=== PATIENT | female | born 1970 | race Two or more races ===

== ENCOUNTER 2020-09-08 18:00 | Outpatient (CLI) | payer MEDICAID | END 2020-09-08 18:01 | disposition critical access hospital (66) | LOC: EMS 18:00 | DX: R11.2 Nausea with vomiting, unspecified (principal); R19.7 Diarrhea, unspecified | CPT/HCPCS: A0425; A0427 ==

== ENCOUNTER 2020-09-08 18:26 | Emergency (ER) | payer MEDICAID ==
[2020-09-08] MEDS ORDERED: SODIUM CHLORIDE 0.9% 1,000 ML IV STA ×3 (18:35→23:08)
[2020-09-08] MEDS ORDERED: ONDANSETRON 4 MG/2 ML VIAL IVP STA ×2 (18:35→19:41)
--- OUTSIDE RECORDS SUMMARY | 2020-09-08 18:49 | EXTERNAL MEDICAL SUMMARY RPT | Continuity of Care Document ---
:1970 Demographics Phone Unavailable Preferred Language Korean Marital Status Unknown Pentecostalism Affiliation Unknown Race Unknown Ethnic Group Unknown Author Organization [facility] Address [address] [id number] Phone Care Team Providers Name Role Phone Horras Unavailable Unavailable Horras Unavailable Unavailable Austin Unavailable Unavailable Austin Unavailable Unavailable Medications date description facility 20200831 testosterone cypionate 200 MG/ML Inject able Solution [facility] Problems date description facility 20200826 Endocrine disorder, unspecified [facility] 20200826 Encounter for screening for malignant n eoplasm of [facility] prostate 20200826 Low back pain [facility] [id number] Impingement syndrome of left shoulder [facility] Procedures date description facility [id number] [facility] 20200827 [facility] 20200826 [facility] 20200826 [facility] Vital Signs date measurement value source 20200826 weight_standard 237.99 lb 20200826 weight_metric 107.95 kg 20200826 temperature_standard 98.2 F 20200826 temperature_metric 36.78 C 20200826 respiration_rate 18 /min 20200826 height_standard 62 in 20200826 height_metric 157.48 cm 20200826 heart_rate 74 /min 20200826 BP_systolic 199 mm[Hg] 20200826 BP_diastolic 88 mm[Hg] 20200826 BMI 43.5 kg/m2 20200827 weight_standard 91.68 lb 20200827 weight_metric 41.59 kg 20200827 height_standard 72 in 20200827 height_metric 182.88 cm 20200827 BP_systolic 128 mm[Hg] 20200827 BP_diastolic 66 mm[Hg] 20200827 BMI 27.3 kg/m2 20200907 weight_standard 92.08 lb 20200907 weight_metric 41.77 kg 20200907 temperature_standard 99.2 F 20200907 temperature_metric 37.33 C 20200907 respiration_rate 16 /min 20200907 height_standard 72 in [id number] height_metric 182.88 cm 20200907 heart_rate 70 /min 20200907 BP_systolic 128 mm[Hg] 20200907 BP_diastolic 64 mm[Hg] 20200907 BMI 27.5 kg/m2
[2020-09-08] MEDS ORDERED: HYDROmorphone 1 MG/ML CARPUJECT IVP STA (18:51)
[2020-09-08 18:53] LABS: BASOPHILS % (AUTO) 0.3 %; EOSINOPHILS % (AUTO) 0.1 %; HCT - HEMATOCRIT 41.3 % (37.0-47.0); HGB - HEMOGLOBIN 14.2 g/dL (12.0-16.0); LYMPHOCYTES # (AUTO) 1.6 10^3/uL (1.5-3.5); LYMPHOCYTES % (AUTO) 14.9 %; MEAN CORPUSCULAR HEMOGLOBIN 32.3 pg (27.0-31.0); MEAN CORPUSCULAR HGB CONC 34.4 g/dL (32.0-36.0); MEAN CORPUSCULAR VOLUME 94.1 fL (81.0-99.0); MEAN PLATELET VOLUME 11.1 fL (7.9-10.8); MONOCYTES # (AUTO) 0.3 10^3/uL (0.0-1.0); MONOCYTES % (AUTO) 2.4 %; NEUTROPHILS # (AUTO) 8.7 10^3/uL (1.5-6.6); NEUTROPHILS % (AUTO) 81.9 %; PLT - PLATELET COUNT 226 10^3/uL (130-450); RED BLOOD COUNT 4.39 10^6/uL (4.20-5.40); RED CELL DISTRIBUTION WIDTH 11.9 % (12.0-15.0); WHITE BLOOD COUNT 10.6 x10^3/uL (4.8-10.8)
--- NOTE | 2020-09-08 18:55 | ED Physician Documentation ---
History of Present Illness - Stated complaint Stated Complaint: N/V/D - Chief complaint Chief Complaint: Abd Pain - Additonal information Additional information: 50-year-old female presents the emergency department for evaluation of 3 days of uncontrolled nausea and vomiting as well as generalized abdominal pain and fevers. She denies any recent illness or sick contacts but did receive the COVID-19 vaccination on the seventh of this month which she is concerned may be contributing to her symptoms. She is a diabetic typically has blood sugars in the 180s to the 240s at home. She is on insulin 70/30 twice daily. She takes 50 units each time. Also on metformin lisinopril, gabapentin and a statin for high cholesterol. Patient is primarily Croatian-speaking but using a video conference interpreter she also reports that she feels very dizzy especially when turning her head. The dizziness last 10-15 seconds before going away but it causes her intense nausea. Denies tinnitus, headache. No hx of similar Much of the history and exam was completed with educational sign language interpreter #[id number] which was otherwise difficult to obtain Review of Systems Constitutional: reports: Fever Eyes: reports: Reviewed and negative Ears: reports: Reviewed and negative Nose: reports: Reviewed and negative Throat: reports: Reviewed and negative Cardiac: denies: Chest pain / pressure, Palpitations, Pedal edema, Calf pain Respiratory: denies: Dyspnea, Cough GI: reports: Abdominal Pain, Nausea, Vomiting, Diarrhea. denies: Constipation, Bloody / black stool : denies: Dysuria, Frequency, Hesitancy Skin: denies: Rash, Lesions Musculoskeletal: reports: Reviewed and negative PD PAST MEDICAL HISTORY - Past Medical History Cardiovascular: Hypertension, High cholesterol Endocrine/Autoimmune: Type 2 diabetes Psych: Depression - Past Surgical History Past Surgical History: Yes Ortho: Other /PROTOTYPER: section, Other - Present Medications Home Medications: Ambulatory Orders Medication Instructions Recorded Confirmed Cyclobenzaprine [Flexeril] 10 mg PO TID PRN #20 tablet 03/26/15 Hydrocodone/Acetaminophen 1 - 2 each PO Q6H PRN #14 tablet 03/26/15 [Hydrocodon-Acetaminophen 5-325] Insulin Aspart (Vial) [NovoLOG 30 unit SQ BID 03/26/15 03/26/15 (VIAL FOR ED USE)] Lisinopril 20 mg PO DAILY 03/26/15 03/26/15 Lovastatin 40 mg PO DAILY 03/26/15 03/26/15 Naproxen [Naprosyn] 500 mg PO DAILY 03/26/15 03/26/15 metFORMIN [Glucophage] 850 mg PO TID 03/26/15 03/26/15 Meclizine [Antivert] 25 mg PO Q6H PRN #30 tablet 09/08/20 Ondansetron Odt [Zofran] 4 mg TL Q6H PRN #30 tablet 09/08/20 - Allergies Allergies/Adverse Reactions: Allergies Allergy/AdvReac Type Severity Reaction Status Date / Time Penicillins Allergy Rash Verified 03/26/15 07:35 - Social History Does the pt smoke?: Yes Smoking Status: Current every day smoker Does the pt drink ETOH?: No Does the pt have substance abuse?: No - Immunizations Immunizations are current?: Yes PD ED PE EXPANDED - General General: Alert - Cardiac Cardiac: Regular Rate, Radial strong equal, Pedal strong equal, Cap refill < 2 sec - Respiratory Respiratory: Clear to ausultation judith. No: Distress, Labored - Abdomen Abdomen: Normal Bowel sounds, Tender to palpation, Generalized/diffuse. No: Rebound (Diffuse abdominal tenderness without guarding or rebound.), Guarding - Back Back: Normal exam - Extremities Extremities: Normal. No: Deformity, Tenderness - Neuro Neuro: Alert and Oriented X 3, CNII-XII intact, Normal speech, Other (dizzineness reproduced with turning the head bilaterally, but most significant on the left). No: Nystagmus - GCS Eye Opening: Spontaneous Motor: Obeys Commands Verbal: Oriented Total: 15 Results - Vitals Vitals: Vital Signs - 24 hr 09/08/20 09/08/20 09/08/20 18:36 18:42 20:48 Temperature 36.7 C Heart Rate 88 84 87 Heart Rate [ 88 Sitting] Heart Rate [ 87 Standing] Heart Rate [ 83 Supine] Respiratory 19 16 20 Rate Blood Pressure 183/91 H 190/100 H 183/91 H Blood Pressure 186/89 H [Sitting] Blood Pressure 183/91 H [Standing] Blood Pressure 187/93 H [Supine] O2 Saturation 100 93 99 Oxygen O2 Source Room air - Labs Labs: Laboratory Tests 09/08/20 09/08/20 09/08/20 18:44 18:44 18:44 WBC 10.6 RBC 4.39 Hgb 14.2 Hct 41.3 MCV 94.1 MCH 32.3 H MCHC 34.4 RDW 11.9 L Plt Count 226 MPV 11.1 H Neut # (Auto) 8.7 H Lymph # (Auto) 1.6 Ll[place] # (Auto) 0.3 Eos # (Auto) 0.0 Baso # (Auto) 0.0 Absolute Nucleated RBC 0.00 Nucleated RBC % 0.0 Sodium 135 Potassium 4.0 Chloride 99 L Carbon Dioxide 23 Anion Gap 13.0 BUN 18 Creatinine 0.9 Estimated GFR (MDRD) 67 L Glucose 289 H Calcium 8.7 Total Bilirubin 0.8 AST 22 ALT 30 Alkaline Phosphatase 75 Total Protein 7.4 Albumin 3.5 Globulin 3.9 Albumin/Globulin Ratio 0.9 L Lipase 20 L Urine Color Urine Clarity Urine pH Ur Specific [place] Urine Protein Urine Glucose (UA) Urine Ketones Urine Occult Blood Urine Nitrite Urine Bilirubin Urine Urobilinogen Ur Leukocyte Esterase Urine RBC Urine WBC Ur Squamous Epith Cells Urine Bacteria Ur Microscopic Review Urine Culture Comments Serum Ketones NEGATIVE 09/08/20 19:50 WBC RBC Hgb Hct MCV MCH MCHC RDW Plt Count MPV Neut # (Auto) Lymph # (Auto) [place] # (Auto) Eos # (Auto) Baso # (Auto) Absolute Nucleated RBC Nucleated RBC % Sodium Potassium Chloride Carbon Dioxide Anion Gap BUN Creatinine Estimated GFR (MDRD) Glucose Calcium Total Bilirubin AST ALT Alkaline Phosphatase Total Protein Albumin Globulin Albumin/Globulin Ratio Lipase Urine Color YELLOW Urine Clarity CLEAR Urine pH 6.0 Ur Specific [place] 1.020 Urine Protein 100 H Urine Glucose (UA) >=1000 H Urine Ketones 15 H Urine Occult Blood SMALL H Urine Nitrite NEGATIVE Urine Bilirubin NEGATIVE Urine Urobilinogen 0.2 (NORMAL) Ur Leukocyte Esterase NEGATIVE Urine RBC 6-10 H Urine WBC 0-3 Ur Squamous Epith Cells FEW Squamous Urine Bacteria Rare Ur Microscopic Review INDICATED Urine Culture Comments NOT INDICATED Serum Ketones - Rads (name of study) CT abd Radiology: Final report received (No evidence of acute abdominal process. Incidental 2.1 cm right adrenal nodule indeterminate. Most likely adrenal adenoma. Incidental note made of central posterior disc protrusion L4-L5 with resulting canal stenosis.) PD MEDICAL DECISION MAKING - ED course Complexity details: reviewed results, re-evaluated patient, d/w patient, d/w family ED course: 50-year-old diabetic female presents to the emergency department with 3 to 4 days of uncontrolled vomiting. This is typically preceded by sensation of dizziness and the room spinning especially when she turns her head to the left. This sensation last less than 10-15 seconds before subsiding. She denies any history of similar. Denies chest pain, shortness of air or headache. Screening labs do not reveal any acute worrisome abnormalities. Initially patient had reported that she had lower abdominal pain That was nonfocal. A CT of the abdomen did not show any acute worrisome findings. There was an incidental finding of a right adrenal nodule likely an adenoma. I did spend some time with the patient discussing her dizziness. History and exam is of dizziness that is peripheral in origin. Additional antiemetics included compazine, meclizine as well as Decadron was given to see if that could help reduce the dizziness. I attempted the angel maneuver at bedside but it was not well tolderated and was inhibited by body habitus. This patient will be signed out to my nighttime colleague Dr. Price to follow-up on her reevaluation of nausea and vomiting after the most recent doses of medication to see if stable for discharge home. I have also communicated the ER findings and plan with the patient's Daughter Criselda Departure - Departure Clinical Impression: Peripheral vertigo involving left ear, Poorly controlled diabetes mellitus Nausea and vomiting Qualifiers: Vomiting type: unspecified Vomiting Intractability: non-intractable Qualified Code(s): R11.2 - Nausea with vomiting, unspecified Adrenal adenoma Qualifiers: Laterality: right Qualified Code(s): D35.01 - Benign neoplasm of right adrenal gland Condition: Stable Record reviewed to determine appropriate education?: Yes Instructions: Vertigo Paroxysmal Positional Follow-Up: Mary Austin MD [Primary Care Provider] - Prescriptions: Meclizine [Antivert] 25 mg PO Q6H PRN #30 tablet PRN Reason: Dizziness Ondansetron Odt [Zofran] 4 mg TL Q6H PRN #30 tablet PRN Reason: Nausea / Vomiting Comments: You were seen in the ED today for dizziness and vomiting. Often dizziness causes severe vomiting. As we discussed, I believe the cause of your dizziness is coming from the inner ear. Small crystals can get lodged in alice semicircular canals causing the motion sickness. Please attempt to do the angel maneuver at home to help reposition the crystals I have prescribed meclizine which is a medication to help with the dizziness and zofran to help with the nausea. You were also given a one time dose of a steroid in the emergency departmetn which should help with the dizziness, however it may cause yoru blood sugars to be higher than normal over the next few days As we discussed the CT scan did show an incidental finding of an adrenal nodule. This is likely a benign or noncancerous finding. This may be what is called an adrenal adenoma. This should be discussed with her primary care provider and reevaluated with repeat imaging in 6 months to 1 year. Please discuss this ED visit with your primary doctor. If yoru symptoms are worsening, please return immediately to the ED>
[2020-09-08 19:01] LABS: ALBUMIN 3.5 g/dL (3.2-5.5); ALBUMIN/GLOBULIN RATIO 0.9 (1.0-2.2); BILIRUBIN,TOTAL 0.8 mg/dL (0.2-1.0); CALCIUM 8.7 mg/dL (8.5-10.3); CREATININE 0.9 mg/dL (0.4-1.0); TOTAL PROTEIN 7.4 g/dL (6.7-8.2)
[2020-09-08] MEDS ORDERED: IOVERSOL 320 100 ML VIAL IVP ONE ×2 (19:12→19:43)
--- NOTE | 2020-09-08 20:03 | CT Report ---
PROCEDURE: Abdomen/Pelvis W INDICATIONS: n//d; diffuse abdominal pain CONTRAST: IV CONTRAST: Optiray 320 ml: 100 PO CONTRAST: *NO PO CONTRAST TECHNIQUE: After the administration of intravenous contrast, 5 mm thick sections acquired from the diaphragms to the symphysis. 5 mm thick coronal and sagittal reformats were acquired. For radiation dose reducti on, the following was used: automated exposure control, adjustment of mA and/or kV according to rai ent size. COMPARISON: None. FINDINGS: Image quality: Excellent. ABDOMEN: Lung bases: Lung bases are clear. Heart size is normal. Solid organs: Liver and spleen are normal in size and enhancement. Gallbladder is unremarkable. Bi liary system is non dilated. Pancreas enhances normally. 2.1 cm right adrenal nodule. Kidneys demons trate normal size and enhancement, without hydronephrosis. Peritoneum and bowel: Bowel loops demonstrate normal wall thickness and caliber. No free fluid or a ir. Nodes and vessels: No retroperitoneal or mesenteric adenopathy by size criteria. Aorta and inferior vena cava are normal in size. Miscellaneous: No ventral hernias. PELVIS: Genitourinary: Bladder wall thickness is normal. Miscellaneous: No inguinal hernias or adenopathy. Bones: No suspicious bony lesions. No vertebral body compression fractures. The central posterior disc protrusion at L4-L5 results in canal stenosis. IMPRESSION: 1. No evidence of acute abdominal process. 2. Incidental 2.1 cm right adrenal nodule, indeterminate, most likely a right adrenal adenoma. 3. Incidental note made of a central posterior disc protrusion at L4-L5 resulting in canal stenosis. Reviewed by: Oli Rico MD on 09/08/2020 8:02 PM PDT Approved by: Oli Rico MD on 09/08/2020 8:02 PM PDT Station ID: [id number]
[2020-09-08 20:14] LABS: BILIRUBIN,URINE NEGATIVE (NEGATIVE); GLUCOSE, URINE (UA) >=1000 mg/dL (NEGATIVE); KETONES,URINE (UA) 15 mg/dL (NEGATIVE); LEUKOCYTE ESTERASE, URINE NEGATIVE (NEGATIVE); NITRITE,URINE NEGATIVE (NEGATIVE); OCCULT BLOOD,URINE SMALL (NEGATIVE); PROTEIN,URINE 100 mg/dL (NEGATIVE); UROBILINOGEN,URINE 0.2 (NORMAL) E.U./dL (NORMAL)
[2020-09-08 20:27] LABS: BACTERIA,URINE Rare /HPF (None Seen); CLARITY,URINE CLEAR (CLEAR); SQUAMOUS EPITHELIAL CELL,UR FEW Squamous (<= Few); WBC,URINE 0-3 /HPF (0-5)
[2020-09-08] MEDS ORDERED: METOCLOPRAMIDE 10 MG/2 ML VIAL IVP STA (20:53)
[2020-09-08] MEDS ORDERED: PROCHLORPERAZINE 10 MG/2 ML VIAL IVP STA (21:21)
[2020-09-08] MEDS ORDERED: PANTOPRAZOLE 40 MG VIAL IVP STA (21:25)
[2020-09-08] MEDS ORDERED: MECLIZINE 12.5 MG TABLET PO STA (21:44)
[2020-09-08] MEDS ORDERED: DEXAMETHASONE 10 MG/ML VIAL PO STA (21:46)
[2020-09-08] MEDS ORDERED: CHERRY SYRUP 10 ML UDC PO ONE (21:46)
--- NOTE | 2020-09-08 23:10 | ED Physician Documentation ---
ED Addendum - Addendum Addendum: 09/08/20 23:08 50-year-old female signed out to me at shift change by STEPHANIE Christopher with ongoing nausea and dizziness. She has been diagnosed with benign positional vertigo and she has been vomiting for 3 days. The patient is slow to respond to treatments but is beginning to respond to treatments. She continues to have some dizziness especially when she looks to the left and when she moves at all even moving around in the bed she will get dizzy. She does have rapid nystagmus to the left and she has been administered 2 L of saline. She continues to be symptomatic and on interrogation of the inferior vena cava she remains dehydrated on the order of 2 L. She is administered another liter of saline intravenously. She has further improvement and is discharged to home. 09/09/20 02:35
[2020-09-09 03:06] VITALS: BP 170/82
== END 2020-09-09 03:04 | disposition home or self-care (01) ==
LOC: EDUNIT# → SUPCPDRO 18:26 → ED 18:26
DX: H81.312 Aural vertigo, left ear (principal); D35.01 Benign neoplasm of right adrenal gland; E86.0 Dehydration; E11.65 Type 2 diabetes mellitus with hyperglycemia; F17.200 Nicotine dependence, unspecified, uncomplicated; Z79.4 Long term (current) use of insulin; Z20.822 Contact with and (suspected) exposure to COVID-19
CPT/HCPCS: 36415; 74177; 80053; 81001; 82009; 83690; 85025; 87635; 96361; 96374; 96375; 96376; 99283; 99285; A9270; J1170; J2765; Q9967; 81003; 87086

== ENCOUNTER 2021-03-29 13:03 | Outpatient (CLI) | payer MEDICAID ==
--- NOTE | 2021-03-30 08:55 | SLEEP CARE CONSULTATION ---
Information from patient questionnaire entered by Vahid Britt MA. I have reviewed and concur with the information entered by Vahid Britt MA. This document represents the service I personally performed and the decisions made by me, Michelle Mojica MD, [facility]. History of Present Illness Service Date and Time: 03/29/2021 1303 Reason for Visit: New patient (ONSET 2019 ) Number of times waking at night: 10 Reasons for waking at night: reports: Pain Toss, Turn, or Twitch while sleeping: Yes Recalls having dreams: Yes Feels refreshed in the morning: Yes Morning headache: Yes Sleepy or fatigued during the day: No Ever fallen asleep while driving: No Takes day naps: No Dreams during day naps: Yes Prior sleep studies: Yes Additional HPI information: I have the pleasure of seeing Ms. Hernández today regarding the possibility of her having obstructive sleep apnea. The interview was conducted through an online neuropsychiatrist. As you know, she is a 50 year old lady who claims to have a sleep study here about 3 years ago. She said she was told she had obstructive sleep apnea-hypopnea but nothing was done. We cannot find any records of her being here in the past. Detailed investigation was not possible due to the language barrier. - Parasomnia Symptoms Ever been unable to move upon waking from sleep: No Walks in sleep: No Ever acted out dreams in sleep: Yes Ever felt weak in the knees when startled or emotional: Yes Bothered by creepy, crawly, restless sensations in legs: Yes Problems with memory or concentration: Yes Subjective Initial [place] Sleepiness Scale score: 13 (2020) Past Medical History Past Medical History: reports: Hypertension, Diabetes, Anxiety, Depression Social History The patient's occupation is a [employer]. Patient is Single and lives in [place]. Have you smoked in the past 12 months: No Alcohol use: No Caffeine use: No Allergies and Home Medications Known drug allergies: Yes (penicillin) Drug allergies reviewed: Yes Home medication list reviewed: Yes Physical Exam Vital signs obtained and entered by: FE ACOSTA Blood Pressure: 123/85 (left) Cuff size: wrist Heart Rate: 78 O2 Saturation: 98 (with mask) Height: 5 ft 4 in Weight: 233 lb Body Mass Index: 39.9 BMI Classification: Obese Impression and Plan IMPRESSION: 1. Obstructive Sleep Apnea-Hypopnea Syndrome, as evident by history of loud and irregular snoring, observed cessation of breath while asleep, frequent awakenings during the night, unrefreshed sleep, cognitive impairment, and daytime hypersomnolence. Narrow oropharynx and obesity are common predisposing factors for obstructive sleep apnea-hypopnea syndrome. Untreated obstructive sleep apnea can also cause hypertension. I recommend proceeding to polysomnography to confirm the diagnosis and to assess severity. If she has significant sleep disordered breathing, a manual CPAP titration study will also be performed to find the optimal treatment pressure. I informed the patient of what the sleep studies involve and after some discussion, she agreed to proceed. Plan: 1. Schedule polysomnography +/- manual CPAP titration study and return in 1 to 2 weeks after the study to discuss result and initiate therapy. 2. Avoid long distance driving or when feeling sleepy. 3. Avoid alcohol, sedative and muscle relaxant around bedtime. 4. Attempt to lose weight. Visit Type: In Office Time Spent with Patient (minutes): 15 Provider Statement: I spent 100% of the Face to Face Visit with the patient with greater than 50% spent counseling the patient and coordination of care.
[2021-03-30 08:56] VITALS: BP 123/85
== END 2021-03-29 13:04 | disposition home or self-care (01) ==
LOC: SC 13:03
PROVIDERS: ATTEND Internal Medicine Pulmonary Disease
DX: G47.10 Hypersomnia, unspecified (principal); G47.8 Other sleep disorders; R06.81 Apnea, not elsewhere classified; R41.89 Other symptoms and signs involving cognitive functions and awareness; R06.83 Snoring; E66.9 Obesity, unspecified; Z68.39 Body mass index [BMI] 39.0-39.9, adult
CPT/HCPCS: 99202; 99212

== ENCOUNTER 2021-05-19 19:19 | Outpatient (CLI) | payer BC, MEDICAID | END 2021-05-19 19:20 | disposition home or self-care (01) | LOC: SC 19:19 | PROVIDERS: ATTEND Internal Medicine Pulmonary Disease | DX: G47.33 Obstructive sleep apnea (adult) (pediatric) (principal); G47.61 Periodic limb movement disorder | CPT/HCPCS: 95810 ==

== ENCOUNTER 2021-06-03 15:06 | Outpatient (CLI) | payer BC, MEDICAID ==
[2021-06-03 16:05] VITALS: BP 160/90
--- NOTE | 2021-06-03 16:05 | SLEEP CARE CONSULTATION ---
Information from patient questionnaire entered by Vahid Britt MA. I have reviewed and concur with the information entered by aVhid Britt MA. This document represents the service I personally performed and the decisions made by , Hetal Fink ARNP. History of Present Illness Service Date and Time: 06/03/2021 1506 Initial [place] Sleepiness Scale score: 13 Current [place] Sleepiness Scale score: 15 (2021) Additional HPI information: LARA Clifton returns for follow up and results of the recently performed polysomnography. Patient speaks Korean and an senior technical support engineer was used named Hola #[id number] through [employer]. I explained the pathophysiology behind obstructive sleep apnea. We then spent quite a bit of time discussing different treatment options. For mild obstructive sleep apnea, surgery and oral appliance are alternatives to nasal CPAP therapy but in moderate or severe cases, nasal CPAP is the most effective and reliable treatment. Because apnea is primarily in supine position, then positional management therapy could be effective. Methods discussed such as positioning with pillows to prevent supine sleep. I reviewed the impact of weight changes on sleep apnea and strongly recommended losing weight. After some discussion, the patient opted to go with the nasal CPAP therapy. Nasal autoCPAP set at 4-15 cmH20 will be ordered with rationale explained. A manual titration study will be ordered if unable to find optimal pressure with office adjustments. I explained how CPAP machine works and what to expect when using the machine. Using CPAP every night in order to get used to it was emphasized. Patient advised to put CPAP mask on before getting into bed so as not to fall asleep without CPAP. To assist acclimation to CPAP use, it could also be used for a short time during day while reading or watching TV. The patient was instructed to call the CPAP supplier to discuss any mechanical problem that may occur. If the mask given is uncomfortable or is difficult to keep on through the night even with adjustment, contact the CPAP supplier as many will replace with another mask style if notified before 30 days. If snoring or perceives is not getting enough air or too much air from the machine, notify this office. Patient was cautioned about risks of drowsy driving until sleepiness symptoms resolve. Sleep Study - Results Type of Sleep Study: Polysomnography (F/U POLY) Polysomnography/Home Sleep Study results: IMPRESSION: The quality of the study is good. The patient had slightly reduced sleep efficiency. The sleep architecture was abnormal for sleep fragmentation and reduced amount of time spent in slow wave sleep (N3). Respiratory monitoring showed moderate obstructive sleep apnea-hypopnea (AHI = 29.0) associated with frequent arousals, oxyhemoglobin desaturation and mild hypoxia (karen oxygen saturation of 83%). The respiratory events occurred mainly during supine (supine AHI = 63.0; non-supine = 18.80). Snore was moderate to loud in intensity. There was severe periodic leg movement of sleep not contributing to the sleep fragmentation. Cardiac rhythm was normal sinus rhythm without significant arrhythmia. No abnormal behavior (parasomnia) observed during the night. Allergies and Home Medications Known drug allergies: Yes (PNC, ) Drug allergies reviewed: Yes Home medication list reviewed: Yes (Hydrocodone and doxycycline) Allergy and home medication list: Allergies Penicillins Allergy (Verified 03/26/15 07:35) Rash Review of Systems Review of systems same as previous: No (stitches in left hand and spine injection ) Physical Exam Vital signs obtained and entered by: FE ACOSTA Blood Pressure: 160/90 (LEFT, PULSE 75, RESP 18) Heart Rate: 72 O2 Saturation: 98 (WITH CLOTH MASK) Height: 5 ft 4 in Weight: 235 lb Weight change since last visit: STITCHES IN LEFT HAND AND INJECTION ON HER SPINE. Body Mass Index: 40.3 BMI Classification: Morbidly Obese Impression and Plan 1. Obstructive Sleep Apnea-Hypopnea Syndrome, severe, with lowest oxygen saturation of 83%. Obviously this is the cause of the patients symptoms of unrefreshed sleep, and excessive daytime sleepiness. Positive pressure therapy could benefit hypertension, diabetes, anxiety and depression. As mentioned above, the patient will be started on nasal autoCPAP therapy with pressure set at 4-15 cmH2O. A manual titration study will be completed if unable to find optimal treatment pressure with office adjustments. Compliance guidelines also reviewed. A copy of compliance guidelines will be given for reference at check out. Because the apnea is more severe supine, I instructed to avoid sleeping supine using pillow positioning until able to start CPAP use. 2. Hypoxemia, mild, with a karen oxygen saturation of 83% and 6.1 minutes with SaO2 under 90%. Her baseline oxygen saturation was normal with an average oxygen saturation of 93%. 3. Periodic limb movement, severe, that did not fragment patients sleep. Periodic limb movement of sleep (PLMS) is characterized by episodes of repetitive limb movements that occur during sleep and usually involve the lower limbs. Patient was advised that no treatment is needed at this time. If symptoms increase, then further evaluation is indicated. * Nasal auto CPAP therapy, pressure at 4-15 cm H2O. * Attempt to lose weight. * Avoid alcohol consumption near bedtime. * Avoid supine sleep until using CPAP. * The patient is again cautioned about driving until sleepiness completely resolves. * Return one month after CPAP obtained. I will assess response to therapy and compliance at that time. Counseling Topics: Sleeping position, Weight loss health impact Visit Type: In Office Time Spent with Patient (minutes): 35 Provider Statement: I spent 100% of the Face to Face Visit with the patient with greater than 50% spent counseling the patient and coordination of care.
== END 2021-06-03 15:07 | disposition home or self-care (01) ==
LOC: SC 15:06
PROVIDERS: ATTEND Nurse Practitioner Family
DX: G47.33 Obstructive sleep apnea (adult) (pediatric) (principal); R09.02 Hypoxemia; G47.61 Periodic limb movement disorder; E66.01 Morbid (severe) obesity due to excess calories; Z68.41 Body mass index [BMI] 40.0-44.9, adult
CPT/HCPCS: 99212; 99214

== ENCOUNTER 2021-09-14 07:49 | Outpatient (CLI) | payer MEDICAID ==
[2021-09-14 10:13] VITALS: BP 162/78
--- NOTE | 2021-09-14 10:13 | SLEEP CARE CONSULTATION ---
Information from patient questionnaire entered by Vahid Britt MA. I have reviewed and concur with the information entered by Vhaid Britt MA. This document represents the service I personally performed and the decisions made by , Hetal Fink ARNP. History of Present Illness Service Date and Time: 09/14/2021 0749 Previous diagnosis: Moderate, Obstructive Sleep Apnea-Hypopnea Syndrome AHI: 29.0 (in 2021) Reason for follow up: first compliance (SET UP DATE 06/21/21, RESMED, ) Equipment type: CPAP Equipment obtained from: Other ([facility]; got initial supplies) Mask style: Full face Mask brand: Resmed (F20) Backup mask available: No (will keep old mask when replaced) Last cushion change: 1 month Type of Sleep Study: Polysomnography (F/U POLY) HPI additional information: LARA Clifton was diagnosed to have moderate, AHI 29.0, obstructive sleep apnea-hypopnea syndrome and returned today for CPAP therapy first compliance follow-up. Sleep Study - Results Type of Sleep Study: Polysomnography (F/U POLY) CPAP Compliance Data - Data Reviewed with Patient Average duration of nightly device use: 5 HOURS 39 MINUTES Compliance rate %: 90 Current pressure setting (cmH2O): 4-15 (median 9.3, avg 11.9 and max 13.0) Average residual AHI: 1.8 Central apnea: .5 Obstructive apnea: .4 Average large leak: 22.9 Subjective Missed days of use due to: reports: illness (in hospital) Patient concerns: denies: aerophagia, mask discomfort, air blowing in eyes, mask leak noise, condensation in mask/hose, nasal congestion, dry mouth, nose, throat, epistaxis, other Observed to snore while using device: No Current pressure setting perceived as: comfortable On therapy, patient: reports: sleeping better, awakening more refreshed, being more awake and alert during the day, more rested overall. denies: drowsiness while driving Initial [place] Sleepiness Scale score: 13 Current [place] Sleepiness Scale score: 15 (08/2021) Allergies and Home Medications Known drug allergies: Yes ([facility]) Home medication list reviewed: Yes Allergy and home medication list: Allergies Penicillins Allergy (Verified 03/26/15 07:35) Rash new medications: Clopidogrel, Jardiance, Isosorb mono, metoprolol, rosuvastatin, aspirin Review of Systems Review of systems same as previous: Yes (HEART SURGERY , MED CHANGE, ) Physical Exam Vital signs obtained and entered by: FE ACOSTA Blood Pressure: 162/78 (HR 70, RESP 18, RIGHT,) Cuff size: wrist Heart Rate: 97 O2 Saturation: 98 (CLOTH MASK) Height: 5 ft 4 in Weight: 235 lb 8 oz (WITH CLOTHES) Body Mass Index: 40.4 BMI Classification: Morbidly Obese Impression and Plan 1. Obstructive Sleep Apnea-Hypopnea Syndrome, moderate, with good treatment comp liance and good apnea control. On CPAP therapy, the patient has better sleep quality and is more rested overall. Patient denies problems with oral dryness, nasal congestion, epistaxis, skin irritation or aerophagia. She just says that she can tell that the pressure is changing, she sees it out at 4 and then it we will go up to 14 cmH2O. The patients pressure will be changed to autoCPAP 9-14 cmH20 to reflect pressures being used. Patient advised to contact me if pressure change is uncomfortable so that it can be adjusted. Goals for apnea control discussed. Patient's apnea severity and rationale for treatment to reduce apnea, improve sleep quality and reduce cardiovascular and cerebrovascular events was reviewed. I also reviewed the benefit of consistent device use of CPAP for hypertension, diabetes, depression and anxiety. 2. Obesity, unspecified. Currently patients BMI is 40.4. Obesity increases the risk of apnea, CPAP pressure requirements and overall health risks especially cardiovascular and diabetes. Patient was encouraged to lose weight. Patient is Egyptian-speaking primarily. We used a computer video game designer, Sharri, whose ID number was [id number]. * Change auto CPAP pressure to 9-14 cmH2O * Notify me if snoring with mask or feeling that the pressure is too much or too little * Attempt to lose weight * Call this office if any problems using CPAP * Return for follow up in 1-2 months, or sooner if concerns arise Counseling Topics: Spare mask, Weight loss health impact Visit Type: In Office Other Participants: Other (Sharri [id number], site promotion agent) Provider Statement: I spent 100% of the Face to Face Visit with the patient with greater than 50% spent counseling the patient and coordination of care.
== END 2021-09-14 07:50 | disposition home or self-care (01) ==
LOC: SC 07:49
PROVIDERS: ATTEND Nurse Practitioner Family
DX: G47.33 Obstructive sleep apnea (adult) (pediatric) (principal); E66.01 Morbid (severe) obesity due to excess calories; Z68.41 Body mass index [BMI] 40.0-44.9, adult
CPT/HCPCS: 99212; 99213

== ENCOUNTER 2021-10-19 09:10 | Outpatient (CLI) | payer MEDICAID ==
[2021-10-19 10:37] VITALS: BP 125/91
--- NOTE | 2021-10-19 10:37 | SLEEP CARE CONSULTATION ---
Information from patient questionnaire entered by Vahid Britt MA. I have reviewed and concur with the information entered by Vahid Britt MA. This document represents the service I personally performed and the decisions made by , Hetal Fink ARNP. History of Present Illness Service Date and Time: 10/19/2021 0910 Previous diagnosis: Moderate, Obstructive Sleep Apnea-Hypopnea Syndrome AHI: 29.0 (in 2021) Reason for follow up: one month (PRESSURE CHANGE, RESMED, NUR 06/21/2021, ) Equipment type: CPAP Equipment obtained from: Other ([facility]: getting supplies as needed) Mask style: Full face Mask brand: Resmed (F20) Backup mask available: Yes (old mask) Prior sleep studies: Yes Type of Sleep Study: Polysomnography (F/U POLY) HPI additional information: LARA Clifton was diagnosed to have moderate, AHI 29.0, obstructive sleep apnea-hypopnea syndrome and returned today for CPAP therapy one month follow-up. Patient is Luxembourgish speaking primarily and an lens cutter was used for essential communication during the visit. Activity Therapy Teacher Deandra #[id number]. Sleep Study - Results Type of Sleep Study: Polysomnography (F/U POLY) CPAP Compliance Data - Data Reviewed with Patient Average duration of nightly device use: 5 HOURS 20 MINUTES Compliance rate %: 93 (09/18/2021-10/17/2021) Current pressure setting (cmH2O): 9-14 Average residual AHI: 1.5 Central apnea: .6 Obstructive apnea: .2 Hypopnea: .7 Average large leak: 1.5 Subjective Patient concerns: reports: mask leak noise. denies: aerophagia, mask discomfort, air blowing in eyes, condensation in mask/hose, nasal congestion, dry mouth, nose, throat, epistaxis, other Observed to snore while using device: No Current pressure setting perceived as: comfortable (sometimes too high) On therapy, patient: reports: sleeping better, awakening more refreshed, being more awake and alert during the day, more rested overall. denies: drowsiness while driving Initial [place] Sleepiness Scale score: 13 Current [place] Sleepiness Scale score: 10 Allergies and Home Medications Home medication list reviewed: Yes (no changes) Allergy and home medication list: Allergies Penicillins Allergy (Verified 03/26/15 07:35) Rash Review of Systems Review of systems same as previous: Yes (no changes) Physical Exam Vital signs obtained and entered by: FE ACOSTA Blood Pressure: 125/91 (RESP 20, PULSE 61, RIGHT) Cuff size: wrist Heart Rate: 61 O2 Saturation: 97 (PAPER MASK) Height: 5 ft 4 in Weight: 230 lb Body Mass Index: 39.4 BMI Classification: Obese Impression and Plan 1. Obstructive Sleep Apnea-Hypopnea Syndrome, moderate, with good treatment compliance and good apnea control. On CPAP therapy, the patient has better sleep quality and is more rested overall. Patient states the pressure will sometimes feel too high and blow air out of the mask. The patients pressure will be changed to autoCPAP 10-12 cmH20 for patient comfort. Patient advised to contact me if pressure change is uncomfortable so that it can be adjusted. Goals for apnea control discussed. She is using a full face mask and states that her DME told her she cannot get further masks until November. This is probably due to the type of mask she is using, a ResMed F20. Patient asking how long she will have to use the CPAP. She heard about surgery that can be done to fix BRIGITTE. I recommended that she talk to her PCP for a referral to an ENT for evaluation of possible surgery to correct BRIGITTE. She voiced understanding. Patient's apnea severity and rationale for treatment to reduce apnea, improve sleep quality and reduce cardiovascular and cerebrovascular events was reviewed. I also reviewed the benefit of consistent device use of CPAP for hypertension, diabetes, depression and anxiety. All communication was done with network management specialist and she voiced understanding of conversation and recommendations. * Change auto CPAP pressure to 10-12 cmH2O * Notify me if snoring with mask or feeling that the pressure is too much or too little * Attempt to lose weight * Call this office if any problems using CPAP * Return for follow up in 3 months, or sooner if concerns arise Counseling Topics: Spare mask, Weight loss health impact Visit Type: In Office (TRANS MACHINE,) Other Participants: Other (Activity Therapy Teacher ) Time Spent with Patient (minutes): 23 Provider Statement: I spent 100% of the Face to Face Visit with the patient with greater than 50% spent counseling the patient and coordination of care.
== END 2021-10-19 09:11 | disposition home or self-care (01) ==
LOC: SC 09:10
PROVIDERS: ATTEND Nurse Practitioner Family
DX: G47.33 Obstructive sleep apnea (adult) (pediatric) (principal); E66.9 Obesity, unspecified; Z68.39 Body mass index [BMI] 39.0-39.9, adult
CPT/HCPCS: 99212; 99213

== ENCOUNTER → 2022-01-15 | Outpatient (CLI) | payer OTHER, MEDICAID | END | disposition short-term general hospital (02) | LOC: EMS 11:15 | DX: R07.9 Chest pain, unspecified (principal); R68.84 Jaw pain; M54.2 Cervicalgia; M54.50 Low back pain, unspecified; M79.672 Pain in left foot; M79.671 Pain in right foot; V49.40XA Driver injured in collision with unspecified motor vehicles in traffic accident, initial encounter; Y92.481 Parking lot as the place of occurrence of the external cause | CPT/HCPCS: A0425; A0427 ==

== ENCOUNTER 2022-01-18 10:27 | Outpatient (CLI) | payer MEDICAID ==
[2022-01-18 11:02] VITALS: BP 146/82
--- NOTE | 2022-01-18 11:02 | SLEEP CARE CONSULTATION ---
Information from patient questionnaire entered by Sawyer Salmon. I have reviewed and concur with the information entered by Sawyer Salmon. This document represents the service I personally performed and the decisions made by me, Hetal Fink ARNP. History of Present Illness Service Date and Time: 01/18/2022 1027 Previous diagnosis: Moderate, Obstructive Sleep Apnea-Hypopnea Syndrome AHI: 29.0 (in 2021) Reason for follow up: three month Equipment type: CPAP (RESMED) Equipment obtained from: Other ([facility]; getting supplies) Mask style: Full face Backup mask available: No (will keep old mask when replaced) Last cushion change: 6 months Type of Sleep Study: Polysomnography (F/U POLY) HPI additional information: LARA Clifton was diagnosed to have moderate, AHI 29.0, obstructive sleep apnea-hypopnea syndrome and returned today for CPAP therapy three month follow-up. Patient is primarily Persian-speaking and an centerless grinder set up operator was used for a central communication. Order To Delivery Supervisor number [id number], [place], using [employer] service. Sleep Study - Results Type of Sleep Study: Polysomnography (F/U POLY) CPAP Compliance Data - Data Reviewed with Patient Average duration of nightly device use: 5 hours, 18 minutes Compliance rate %: 96 (10/16/21 to 01/13/22; 88/90 days used) Current pressure setting (cmH2O): 10-12 (avg 11.8, max 11.9) Average residual AHI: 1.6 Average large leak: 0.4 L/min Subjective Patient concerns: reports: air blowing in eyes, other (needs new mask). denies: aerophagia, mask discomfort, mask leak noise, condensation in mask/hose, nasal congestion, dry mouth, nose, throat, epistaxis Observed to snore while using device: No Current pressure setting perceived as: comfortable On therapy, patient: reports: other (She does not really notice but she thinks it might help her feel more rested). denies: drowsiness while driving Initial [place] Sleepiness Scale score: 13 Current [place] Sleepiness Scale score: 16 Allergies and Home Medications Home medication list reviewed: Yes (eye drops since surgery; steroid, infection and pain) Allergy and home medication list: Allergies Penicillins Allergy (Verified 03/26/15 07:35) Rash Review of Systems Review of systems same as previous: No (surgery on eye) Physical Exam Vital signs obtained and entered by: BLANKA DANIELS Blood Pressure: 146/82 (LEFT WRIST ) Cuff size: wrist Heart Rate: 70 O2 Saturation: 100 Height: 5 ft 4 in Weight: 243 lb Body Mass Index: 41.7 BMI Classification: Morbidly Obese Impression and Plan 1. Obstructive Sleep Apnea-Hypopnea Syndrome, moderate, with good treatment compliance and good apnea control. On CPAP therapy, the patient does feel more rested overall. Patient is Persian speaking mainly and we used [employer] interpretive services during the visit for communication. She has no major complaints. She has some air leaking and she was advised to call her DME to get mask replacements to reduce mask leaks. She voiced understanding. She still would like to know how long she is going to have to use the CPAP and if there is a surgery to fix her. I re-explained that she could see an ENT specialist to evaluate her for possible surgery intervention. She may also work on losing weight, at least 30-40 pounds to reduce her apneas. She voiced understanding. Patient's apnea severity and rationale for treatment to reduce apnea, improve sleep quality and reduce cardiovascular and cerebrovascular events was reviewed. I also reviewed the benefit of consistent device use of CPAP for hypertension, diabetes, depression and anxiety. * Continue auto CPAP pressure at 10-12 cmH2O * Notify me if snoring with mask or feeling that the pressure is too much or too little * Attempt to lose weight * Call this office if any problems using CPAP * Return for follow up in 6 months, or sooner if concerns arise Counseling Topics: Spare mask, Weight loss health impact Visit Type: In Office Time Spent with Patient (minutes): 21 Provider Statement: I spent 100% of the Face to Face Visit with the patient with greater than 50% spent counseling the patient and coordination of care.
== END 2022-01-18 10:28 | disposition home or self-care (01) ==
LOC: SC 10:27
PROVIDERS: ATTEND Nurse Practitioner Family
DX: G47.33 Obstructive sleep apnea (adult) (pediatric) (principal); E66.01 Morbid (severe) obesity due to excess calories; Z68.41 Body mass index [BMI] 40.0-44.9, adult
CPT/HCPCS: 99212; 99213

== ENCOUNTER 2022-04-19 12:52 | Emergency (ER) | payer MEDICAID ==
[2022-04-19 13:26] VITALS: BP 149/80
[2022-04-19 14:24] LABS: BASOPHILS # (AUTO) 0.1 10^3/uL (0.0-0.1); BASOPHILS % (AUTO) 0.6 %; EOSINOPHILS # (AUTO) 0.2 10^3/uL (0.0-0.7); EOSINOPHILS % (AUTO) 2.4 %; HCT - HEMATOCRIT 39.4 % (37.0-47.0); HGB - HEMOGLOBIN 12.9 g/dL (12.0-16.0); LYMPHOCYTES # (AUTO) 2.5 10^3/uL (1.5-3.5); LYMPHOCYTES % (AUTO) 29.5 %; MEAN CORPUSCULAR HEMOGLOBIN 31.7 pg (27.0-31.0); MEAN CORPUSCULAR HGB CONC 32.7 g/dL (32.0-36.0); MEAN CORPUSCULAR VOLUME 96.8 fL (81.0-99.0); MEAN PLATELET VOLUME 10.8 fL (7.9-10.8); MONOCYTES # (AUTO) 0.4 10^3/uL (0.0-1.0); MONOCYTES % (AUTO) 5.3 %; NEUTROPHILS # (AUTO) 5.2 10^3/uL (1.5-6.6); NEUTROPHILS % (AUTO) 61.8 %; PLT - PLATELET COUNT 211 10^3/uL (130-450); RED BLOOD COUNT 4.07 10^6/uL (4.20-5.40); RED CELL DISTRIBUTION WIDTH 12.1 % (12.0-15.0); WHITE BLOOD COUNT 8.3 x10^3/uL (4.8-10.8)
[2022-04-19 14:41] LABS: ALBUMIN 3.4 g/dL (3.2-5.5); BILIRUBIN,TOTAL 0.4 mg/dL (0.2-1.0); CALCIUM 8.9 mg/dL (8.5-10.3); CREATININE 1.1 mg/dL (0.4-1.0); MAGNESIUM 2.1 mg/dL (1.7-2.8); POTASSIUM 4.1 mmol/L (3.5-5.0); TOTAL PROTEIN 6.9 g/dL (6.7-8.2)
[2022-04-19] MEDS ORDERED: KETOROLAC 60 MG/2 ML VIAL IM STA (15:05)
[2022-04-19] MEDS ORDERED: CYCLOBENZAPRINE 10 MG TABLET PO STA (15:05)
--- NOTE | 2022-04-19 15:10 | ED Physician Documentation ---
History of Present Illness - Stated complaint Stated Complaint: BACK/FACE PX AND SWELLING - Chief complaint Chief Complaint: General - History obtained from History obtained from: Patient, Friend - History of Present Illness Pain level max: 6 Pain level now: 5 - Additonal information Additional information: paraprofessional interpreter [id number] was used for all interactions. Patient is a 51-year-old female who presents to the emergency department stating that that she has had back pain for the past 4 years. She states that she was in an accident about 4 months ago. She has been on Flexeril at home but ran out of this. She states that since then it has hurt more to move, bend over, walk. No loss of bowel or bladder control. No numbness or tingling. Better with rest, worse with movement. No fevers. No chills. No IV drug use. She also states that she had cataract surgery in November and December. She states that the lenses were dislodged during the accident. She states that she is scheduled to see another eye doctor in [place], but states that she has been having continuous eye pain since the accident. This is been ongoing for several months. She has been told it is secondary to the lenses. No vision changes today. Nothing makes it better or worse. She states that her eyes are watery occasionally as well. No drainage. No redness. She feels like her eyelids are swollen. These are no different than they have been for the past several months. Review of Systems Ten Systems: 10 systems reviewed and negative Constitutional: denies: Fever, Chills Nose: denies: Rhinorrhea / runny nose, Congestion Throat: denies: Sore throat Cardiac: denies: Chest pain / pressure, Palpitations Respiratory: denies: Dyspnea, Cough, Wheezing GI: denies: Nausea, Vomiting, Diarrhea Skin: denies: Rash Musculoskeletal: denies: Neck pain Neurologic: denies: Focal weakness, Numbness, Headache PD PAST MEDICAL HISTORY - Past Medical History Past Medical History: Yes Cardiovascular: Hypertension, High cholesterol Endocrine/Autoimmune: Type 2 diabetes Psych: Depression - Past Surgical History Past Surgical History: Yes Ortho: Other /PRODUCTION CHECKER: section, Other - Present Medications Home Medications: Ambulatory Orders Medication Instructions Recorded Confirmed Cyclobenzaprine [Flexeril] 10 mg PO TID PRN #20 tablet 03/26/15 Hydrocodone/Acetaminophen 1 - 2 each PO Q6H PRN #14 tablet 03/26/15 [Hydrocodon-Acetaminophen 5-325] Insulin Aspart (Vial) [NovoLOG 30 unit SQ BID 03/26/15 03/26/15 (VIAL FOR ED USE)] Lisinopril 20 mg PO DAILY 03/26/15 03/26/15 Lovastatin 40 mg PO DAILY 03/26/15 03/26/15 Naproxen [Naprosyn] 500 mg PO DAILY 03/26/15 03/26/15 metFORMIN [Glucophage] 850 mg PO TID 03/26/15 03/26/15 Meclizine [Antivert] 25 mg PO Q6H PRN #30 tablet 09/08/20 Ondansetron Odt [Zofran] 4 mg TL Q6H PRN #30 tablet 09/08/20 Cyclobenzaprine [Flexeril] 10 mg PO TID PRN #20 tablet 04/19/22 Meloxicam [Mobic] 7.5 mg PO BID PRN #20 tablet 04/19/22 - Allergies Allergies/Adverse Reactions: Allergies Allergy/AdvReac Type Severity Reaction Status Date / Time Penicillins Allergy Rash Verified 04/19/22 13:08 liraglutide [From Victoza] AdvReac Headache Verified 04/19/22 13:09 - Social History Does the pt smoke?: Yes Smoking Status: Current every day smoker Does the pt drink ETOH?: No Does the pt have substance abuse?: No - Immunizations Immunizations are current?: Yes PD ED PE NORMAL - Vitals Vital signs reviewed: Yes - General General: Alert and oriented X 3, No acute distress, Well developed/nourished - HEENT HEENT: PERRL, EOMI, Moist mucous membranes, Other (No conjunctival injection. No significant lid swelling.) - Neck Neck: Supple, no meningeal sign - Cardiac Cardiac: RRR, Strong equal pulses - Respiratory Respiratory: No respiratory distress, Clear bilaterally - Abdomen Abdomen: Soft, Non tender, Non distended - Back Back: No spinal TTP (She feels like her eyelids are swollen. These are no different than they have been for the past several months.) - Derm Derm: Warm and dry, No rash - Extremities Extremities: No calf tenderness / cord - Neuro Neuro: Alert and oriented X 3, No motor deficit, No sensory deficit, Other (Normal bilateral lower extremity patellar and ankle jerk reflexes. Normal great toe extension bilaterally. no saddle anesthesia) - Psych Psych: Normal mood, Normal affect Results - Vitals Vitals: Vital Signs - 24 hr 04/19/22 13:13 Temperature 36.7 C Heart Rate 73 Respiratory 18 Rate Blood Pressure 149/80 H O2 Saturation 98 Oxygen O2 Source Room air - Labs Labs: Laboratory Tests 04/19/22 04/19/22 04/19/22 14:20 14:20 14:20 WBC 8.3 RBC 4.07 L Hgb 12.9 Hct 39.4 MCV 96.8 MCH 31.7 H MCHC 32.7 RDW 12.1 Plt Count 211 MPV 10.8 Neut # (Auto) 5.2 Lymph # (Auto) 2.5 Lanier # (Auto) 0.4 Eos # (Auto) 0.2 Baso # (Auto) 0.1 Absolute Nucleated RBC 0.00 Nucleated RBC % 0.0 Sodium 135 Potassium 4.1 Chloride 101 Carbon Dioxide 25 Anion Gap 9.0 BUN 34 H Creatinine 1.1 H Estimated GFR (MDRD) 53 L Glucose 318 H Calcium 8.9 Magnesium 2.1 Total Bilirubin 0.4 AST 15 ALT 18 Alkaline Phosphatase 70 Total Protein 6.9 Albumin 3.4 Globulin 3.5 Albumin/Globulin Ratio 1.0 TSH 2.12 PD Medical Decision Making - ED course Complexity details: reviewed results, re-evaluated patient, considered differential (No cauda equina, no spinal epidural abscess, no fracture, no aortic dissection or evidence of aneursym rupture), d/w patient ED course: 51-year-old female with chronic low back pain, ongoing for the past 4 years. Out of her muscle relaxants. Requesting refill. We will place her on meloxicam and Flexeril. Patient also has chronic ongoing eye pain status post cataract surgery back in November and December. She is being followed closely by her coal tower operator for this. No changes today. No vision changes. No conjunctival injection. No drainage. No evidence of infection. No evidence of orbital cellulitis. Patient adamantly denies being on any home medications, but review of her pharmacy records reveal that she is on Lasix, Jardiance, rosuvastatin, insulin, venlafaxine and clopidogrel as well as isosorbide monohydrate. She is also on lisinopril. Patient counseled regarding signs and symptoms for which I believe and urgent re-evaluation would be necessary. Patient with good understanding of and agreement to plan and is comfortable going home at this time This document was made in part using voice recognition software. While efforts are made to proofread this document, sound alike and grammatical errors may occur. Departure - Departure Disposition: Home, Self Care Clinical Impression: Back spasm, Eyelid pain of both eyes Condition: Good Instructions: ED Spasm Back No Trauma, Cataracts Follow-Up: your,doctor in 1 week [Other] Prescriptions: Cyclobenzaprine [Flexeril] 10 mg PO TID PRN #20 tablet PRN Reason: Spasms Meloxicam [Mobic] 7.5 mg PO BID PRN #20 tablet PRN Reason: Pain Comments: Please make sure to follow-up with your primary care provider for further medications for your back. You also need to follow-up with your eye doctor closely for further evaluation of your eyes. Your prescriptions were sent to [facility] in [place]. Please return if you worsen.
== END 2022-04-19 16:04 | disposition home or self-care (01) ==
LOC: ED 12:52
DX: M62.830 Muscle spasm of back (principal); H57.13 Ocular pain, bilateral; F17.200 Nicotine dependence, unspecified, uncomplicated
CPT/HCPCS: 36415; 80053; 83735; 84443; 85025; 96372; 99283; 99284; A9270

== ENCOUNTER 2022-05-16 23:49 | Outpatient (CLI) | payer MEDICAID | END 2022-05-16 23:50 | disposition critical access hospital (66) | LOC: EMS 23:49 | DX: E11.65 Type 2 diabetes mellitus with hyperglycemia (principal); R07.9 Chest pain, unspecified; R68.2 Dry mouth, unspecified | CPT/HCPCS: A0425; A0429; A0999 ==

== ENCOUNTER 2022-05-17 00:10 | Emergency (ER) | payer MEDICAID ==
[2022-05-17 00:31] LABS: VBG PCO2 32.4 mmHg (41-51); VBG PH 7.404 (7.31-7.41); VBG PO2 110.9 mmHg (25-47)
[2022-05-17 00:32] LABS: BASOPHILS % (AUTO) 0.5 %; EOSINOPHILS # (AUTO) 0.2 10^3/uL (0.0-0.7); EOSINOPHILS % (AUTO) 2.7 %; HCT - HEMATOCRIT 39.9 % (37.0-47.0); HGB - HEMOGLOBIN 13.3 g/dL (12.0-16.0); LYMPHOCYTES # (AUTO) 2.9 10^3/uL (1.5-3.5); LYMPHOCYTES % (AUTO) 34.7 %; MEAN CORPUSCULAR HEMOGLOBIN 31.8 pg (27.0-31.0); MEAN CORPUSCULAR HGB CONC 33.3 g/dL (32.0-36.0); MEAN CORPUSCULAR VOLUME 95.5 fL (81.0-99.0); MONOCYTES # (AUTO) 0.5 10^3/uL (0.0-1.0); MONOCYTES % (AUTO) 5.6 %; NEUTROPHILS # (AUTO) 4.6 10^3/uL (1.5-6.6); NEUTROPHILS % (AUTO) 56.3 %; PLT - PLATELET COUNT 198 10^3/uL (130-450); RED BLOOD COUNT 4.18 10^6/uL (4.20-5.40); RED CELL DISTRIBUTION WIDTH 12.2 % (12.0-15.0); VBG BASE EXCESS -3.9 mmol/L (-2 - +2); VBG HCO3 19.8 mmol/L (23-28); VBG OXYGEN SATURATION 97.8 % (60-80); VBG TOTAL CO2 20.8 mmol/L (24-29); WHITE BLOOD COUNT 8.2 x10^3/uL (4.8-10.8)
[2022-05-17 00:40] LABS: KETONES, SERUM (ACETEST) NEGATIVE (NEGATIVE)
[2022-05-17 00:48] LABS: ALBUMIN 3.6 g/dL (3.2-5.5); ALKALINE PHOSPHATASE 61 IU/L (42-121); ALT ALANINE AMINOTRANSFERASE 24 IU/L (10-60); AST ASPARTATE AMINOTRANSFERASE 20 IU/L (10-42); BILIRUBIN,TOTAL 0.6 mg/dL (0.2-1.0); BUN - BLOOD UREA NITROGEN 33 mg/dL (6-20); CARBON DIOXIDE - CO2 20 mmol/L (21-32); CHLORIDE 104 mmol/L (101-111); CREATININE 1.3 mg/dL (0.4-1.0); GFR - MDRD 43 (>89); GLUCOSE 357 mg/dL (70-100); LIPASE 51 U/L (22-51); POTASSIUM 3.9 mmol/L (3.5-5.0); SODIUM 136 mmol/L (135-145); TOTAL PROTEIN 7.1 g/dL (6.7-8.2)
[2022-05-17 00:48] LABS: BILIRUBIN,URINE NEGATIVE (NEGATIVE); GLUCOSE, URINE (UA) >=1000 mg/dL (NEGATIVE); KETONES,URINE (UA) NEGATIVE (NEGATIVE); LEUKOCYTE ESTERASE, URINE NEGATIVE (NEGATIVE); NITRITE,URINE NEGATIVE (NEGATIVE); OCCULT BLOOD,URINE SMALL (NEGATIVE); PROTEIN,URINE 100 mg/dL (NEGATIVE); UROBILINOGEN,URINE 0.2 (NORMAL) E.U./dL (NORMAL)
[2022-05-17 00:57] LABS: CLARITY,URINE CLEAR (CLEAR)
[2022-05-17 00:59] LABS: BACTERIA,URINE Rare /HPF (None Seen); RBC,URINE 0-5 /HPF (0-5); SQUAMOUS EPITHELIAL CELL,UR FEW Squamous (<= Few); WBC,URINE 0-3 /HPF (0-5)
[2022-05-17] MEDS ORDERED: KETOROLAC 15 MG/ML VIAL IVP STA (01:00)
[2022-05-17] MEDS ORDERED: INSULIN REGULAR HUMAN 100 UNIT/1 ML 10 ML MDV IVP STA (01:01)
[2022-05-17 01:12] VITALS: BP 178/78
--- NOTE | 2022-05-17 01:33 | ED Physician Documentation ---
History of Present Illness - Stated complaint Stated Complaint: HIGH BG - Chief complaint Chief Complaint: General - History obtained from History obtained from: Patient, Family (daughter) - Additonal information Additional information: History obtained with daughter acting as supermarket manager. Patient declined solomon islander language ipad science interpreter. 52-year-old woman with past medical history of diabetes, MD in June, sleep apnea, stroke, presents with self-reported panic attack this evening. She states that she was experiencing bilateral chest tightness, shortness of breath, dry mouth and intense anxiety after being followed by thania gifford this past evening in their car. Chest pain is nonradiating, BL, sharp, nonpleuritic, nonexertional. had been feeling normal earlier. 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, Other - Present Medications Home Medications: Ambulatory Orders Medication Instructions Recorded Confirmed Insulin Aspart (Vial) [NovoLOG 30 unit SQ BID 03/26/15 03/26/15 (VIAL FOR ED USE)] Lisinopril 20 mg PO DAILY 03/26/15 03/26/15 metFORMIN [Glucophage] 1,000 mg PO BID 03/26/15 05/17/22 Meloxicam [Mobic] 7.5 mg PO BID PRN #20 tablet 04/19/22 Clopidogrel Bisulfate [Plavix] 75 mg PO DAILY 05/17/22 05/17/22 Empagliflozin [Jardiance] 25 mg PO 05/17/22 Furosemide [Lasix] 20 mg PO DAILY 05/17/22 05/17/22 Isosorbide Mononitrate [Isosorbide 120 mg PO 05/17/22 Mononitrate ER] Metoprolol Tartrate [Lopressor] 12.5 mg PO DAILY 05/17/22 05/17/22 Rosuvastatin Calcium [Crestor] 20 mg PO DAILY 05/17/22 05/17/22 Venlafaxine [Effexor] 100 mg PO DAILY 05/17/22 05/17/22 - Allergies Allergies/Adverse Reactions: Allergies Allergy/AdvReac Type Severity Reaction Status Date / Time Penicillins Allergy Rash Verified 05/17/22 00:30 liraglutide [From Victoza] AdvReac Headache Verified 05/17/22 00:30 - Social History Does the pt smoke?: Yes Smoking Status: Current every day smoker Does the pt drink ETOH?: No Does the pt have substance abuse?: No - Immunizations Immunizations are current?: Yes PD ED PE NORMAL - Vitals Vital signs reviewed: Yes - General General: Alert and oriented X 3, No acute distress, Well developed/nourished - HEENT HEENT: Atraumatic, PERRL, EOMI - Neck Neck: Supple, no meningeal sign - Cardiac Cardiac: RRR - Respiratory Respiratory: No respiratory distress, Clear bilaterally - Derm Derm: Normal color, Warm and dry - Neuro Neuro: No motor deficit, No sensory deficit - Psych Psych: Normal mood, Normal affect Results - Vitals Vitals: Vital Signs - 24 hr 05/17/22 05/17/22 05/17/22 00:16 00:22 01:10 Temperature 36.9 C Heart Rate 85 87 73 Respiratory 20 18 18 Rate Blood Pressure 156/78 H 156/78 H 178/78 H O2 Saturation 97 100 100 Oxygen O2 Source Room air - EKG (time done) 0105 Rate: Rate (enter#) (76) Rhythm: NSR Forsan: Normal Intervals: Prolonged OR (207) QRS: Normal Ischemia: Normal ST segments, Other (old inferior lead infarct) - Labs Labs: Laboratory Tests 05/17/22 05/17/22 05/17/22 00:17 00:17 00:17 WBC 8.2 RBC 4.18 L Hgb 13.3 Hct 39.9 MCV 95.5 MCH 31.8 H MCHC 33.3 RDW 12.2 Plt Count 198 MPV 11.0 H Neut # (Auto) 4.6 Lymph # (Auto) 2.9 Ellis # (Auto) 0.5 Eos # (Auto) 0.2 Baso # (Auto) 0.0 Absolute Nucleated RBC 0.00 Nucleated RBC % 0.0 VBG pH 7.404 VBG pCO2 32.4 L VBG pO2 110.9 H VBG HCO3 19.8 L VBG Total CO2 20.8 L VBG O2 Saturation 97.8 H VBG Base Excess -3.9 L Sodium 136 Potassium 3.9 Chloride 104 Carbon Dioxide 20 L Anion Gap 12.0 BUN 33 H Creatinine 1.3 H Estimated GFR (MDRD) 43 L Glucose 357 H Calcium 9.0 Total Bilirubin 0.6 AST 20 ALT 24 Alkaline Phosphatase 61 Troponin I High Sens Total Protein 7.1 Albumin 3.6 Globulin 3.5 Albumin/Globulin Ratio 1.0 Lipase 51 Urine Color Urine Clarity Urine pH Ur Specific Mckinnon Urine Protein Urine Glucose (UA) Urine Ketones Urine Occult Blood Urine Nitrite Urine Bilirubin Urine Urobilinogen Ur Leukocyte Esterase Urine RBC Urine WBC Ur Squamous Epith Cells Urine Bacteria Ur Microscopic Review Urine Culture Comments Serum Ketones NEGATIVE 05/17/22 05/17/22 00:17 00:35 WBC RBC Hgb Hct MCV MCH MCHC RDW Plt Count MPV Neut # (Auto) Lymph # (Auto) Ellis # (Auto) Eos # (Auto) Baso # (Auto) Absolute Nucleated RBC Nucleated RBC % VBG pH VBG pCO2 VBG pO2 VBG HCO3 VBG Total CO2 VBG O2 Saturation VBG Base Excess Sodium Potassium Chloride Carbon Dioxide Anion Gap BUN Creatinine Estimated GFR (MDRD) Glucose Calcium Total Bilirubin AST ALT Alkaline Phosphatase Troponin I High Sens 6.6 Total Protein Albumin Globulin Albumin/Globulin Ratio Lipase Urine Color YELLOW Urine Clarity CLEAR Urine pH 6.0 Ur Specific Mckinnon 1.015 Urine Protein 100 H Urine Glucose (UA) >=1000 H Urine Ketones NEGATIVE Urine Occult Blood SMALL H Urine Nitrite NEGATIVE Urine Bilirubin NEGATIVE Urine Urobilinogen 0.2 (NORMAL) Ur Leukocyte Esterase NEGATIVE Urine RBC 0-5 Urine WBC 0-3 Ur Squamous Epith Cells FEW Squamous Urine Bacteria Rare Ur Microscopic Review INDICATED Urine Culture Comments NOT INDICATED Serum Ketones PD Medical Decision Making - ED course Complexity details: reviewed results, re-evaluated patient, considered differential, d/w patient, d/w family Social Determinants of Health: Daughter of the patient describes concern about a person in a car from "[employer] tailing them by car this past evening, prompting intense anxiety. Patient states that she felt unsafe due to this, does feel safe at home, but has a general sense of unease. She was told that she can use emergency department as a resource if she begins to feel unsafe again. ED course: 52-year-old woman with history of MD presents With chest pain, shortness of breath, dry mouth and intense anxiety. Symptoms improved with Toradol administration initial EKG without any signs of acute ischemia though there are old ischemic changes.CBC abdominal panel and troponin was ordered as well as venous blood gas. These were remarkable for hyperventilatory pattern on venous blood gas, some GLEN on kidney function testing, and blood in the urine. She also had elevated blood glucose and was treated with 10 of insulin with subsequent improvement. No signs of DKA on lab work (normal pH, no serum ketones, no urine ketones). Chest x-ray ordered and independently interpreted by outside radiologist and myself with no evidence of cardiopulmonary disease. Given that chest pain onset was 8:45 PM and her high-sensitivity troponin was negative, acute MD is ruled out at this time however she should follow-up with her tarring machine operator Dr. Marin as well as PCP. Return precautions were provided. Departure - Departure Clinical Impression: Anxiety attack, Chest pain, Hyperglycemia Condition: Stable Instructions: ED Chest Pain NonCardiac Print Language: Thai Comments: You were seen in the emergency department for medical evaluation. Your labwork showed kidney inflammation (creatinine of 1.3) and blood in the urine. Please follow up with your primary care provider. If this is a new change from previous labwork you may need further testing. In the meantime, stay well hydrated. Make a goal to drink 6-10 servings of water daily. Please follow-up with your primary care provider and return to the emergency department if you have any new or worsening symptoms or other concerns. Usted fue atendido en el departamento de emergencias para marc evaluacin mdica. Jo anlisis de laboratorio mostr inflamacin renal (creatinina de 1.3) y navdeep en la orina. Tung un seguimiento con jo proveedor de atencin primaria. Si se trata de un nuevo cambio con respecto al trabajo de laboratorio anterior, es posible que necesite ms pruebas. Mientras tanto, mantngase dilan hidratado. Tung marc meta para beber 6-10 porciones de agua al da. Tung un seguimiento con jo proveedor de atencin primaria y regrese al departamento de emergencias si tiene algn sntoma nuevo o que empeora u otras inquietudes.
== END 2022-05-17 02:21 | disposition home or self-care (01) ==
LOC: EDUNIT# → ED 00:10
DX: R07.9 Chest pain, unspecified (principal); F41.0 Panic disorder [episodic paroxysmal anxiety]; E11.65 Type 2 diabetes mellitus with hyperglycemia; Z79.4 Long term (current) use of insulin; F17.200 Nicotine dependence, unspecified, uncomplicated
CPT/HCPCS: 36415; 80053; 81001; 82009; 82803; 83690; 84484; 85025; 93005; 96374; 99284; J1815; 81003; 87086

== ENCOUNTER 2022-11-15 05:50 | Outpatient (CLI) | payer MEDICAID ==
[2022-11-15 06:10] LABS: HCT - HEMATOCRIT 43.5 % (37.0-47.0); MEAN CORPUSCULAR HEMOGLOBIN 31.3 pg (27.0-31.0); MEAN CORPUSCULAR HGB CONC 32.2 g/dL (32.0-36.0); MEAN CORPUSCULAR VOLUME 97.3 fL (81.0-99.0); MEAN PLATELET VOLUME 10.5 fL (7.9-10.8); RED BLOOD COUNT 4.47 10^6/uL (4.20-5.40); RED CELL DISTRIBUTION WIDTH 12.6 % (12.0-15.0); WHITE BLOOD COUNT 9.2 x10^3/uL (4.8-10.8)
[2022-11-15 06:23] LABS: CHOL/HDL RATIO 3.9 (<4.4); CHOLESTEROL 183 mg/dL; HDL CHOLESTEROL 47 mg/dL; LDL CHOLESTEROL,CALCULATED 82 mg/dL; LDL/HDL RATIO 1.7 (<4.4); TRIGLYCERIDES 271 mg/dL (48-352); VLDL CHOLESTEROL 54 mg/dL
[2022-11-15 06:32] LABS: BILIRUBIN,URINE NEGATIVE (NEGATIVE); GLUCOSE, URINE (UA) >=1000 mg/dL (NEGATIVE); KETONES,URINE (UA) NEGATIVE (NEGATIVE); LEUKOCYTE ESTERASE, URINE NEGATIVE (NEGATIVE); NITRITE,URINE NEGATIVE (NEGATIVE); OCCULT BLOOD,URINE SMALL (NEGATIVE); PROTEIN,URINE >=300 mg/dL (NEGATIVE); UROBILINOGEN,URINE 0.2 (NORMAL) E.U./dL (NORMAL)
[2022-11-15 06:41] LABS: CLARITY,URINE CLEAR (CLEAR)
[2022-11-15 06:42] LABS: BACTERIA,URINE Few /HPF (None Seen); RBC,URINE 0-5 /HPF (0-5); SQUAMOUS EPITHELIAL CELL,UR MOD Squamous (<= Few)
[2022-11-15 11:47] LABS: ESTIMATED AVERAGE GLUCOSE 229 mg/dL (70-100); HEMOGLOBIN A1c% 9.6 % (4.27-6.07)
== END 2022-11-15 05:51 | disposition home or self-care (01) ==
LOC: LAB 05:50
PROVIDERS: ATTEND Nurse Practitioner
DX: I25.2 Old myocardial infarction (principal); Z79.4 Long term (current) use of insulin; N39.46 Mixed incontinence
CPT/HCPCS: 36415; 80061; 81001; 83036; 83721; 85027; 87086

== ENCOUNTER 2022-11-16 08:00 | Outpatient (CLI) | payer MEDICAID ==
[2022-11-16 20:35] LABS: BACTERIAL VAGINOSIS DNA NEGATIVE (NEGATIVE); CANDIDA GLABRATA DNA NEGATIVE (NEGATIVE); CANDIDA GROUP DNA POSITIVE (NEGATIVE); CANDIDA KRUSEI DNA NEGATIVE (NEGATIVE); TRICHOMONAS VAGINALIS DNA NEGATIVE (NEGATIVE)
[2022-11-16 22:00] LABS: CHLAMYDIA TRACHOMATIS DNA NEGATIVE (NEGATIVE); NEISSERIA GONORRHOEAE DNA NEGATIVE (NEGATIVE)
== END 2022-11-16 23:59 | disposition home or self-care (01) ==
LOC: LAB.WC 08:00
PROVIDERS: ATTEND Nurse Practitioner
DX: N89.8 Other specified noninflammatory disorders of vagina (principal); Z11.3 Encounter for screening for infections with a predominantly sexual mode of transmission
CPT/HCPCS: 81514; 87491; 87591; 87661

== ENCOUNTER 2023-11-22 06:13 | Emergency (ER) | payer MEDICAID ==
--- NOTE | 2023-11-22 07:22 | ED Physician Documentation ---
PD HPI NECK PAIN - Stated complaint Stated Complaint: BILAT ARM/HAND, BACK PX - Chief complaint Chief Complaint: Ext Problem - History obtained from History obtained from: Patient, Other - History of Present Illness Timing - onset: How many days ago Timing - details: Gradual onset, Still present (has had wrist pains with use and has seen PCP with referral to ortho at [facility] (but is not until end Dec). Dx likely carpal tunnel. Also with chronic recurrent shoulder and lower back pains. P+Main complaint today is much increased pain in wrists. Has not been using any splints nor reg meds.) Location: Lower, Right, Left Quality: Pain, Spasm Associated symptoms: Numbness (middle fingers on both hands, more to right.). 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, Other - Present Medications Home Medications: Ambulatory Orders Medication Instructions Recorded Confirmed metFORMIN [Glucophage] 1,000 mg PO BID 03/26/15 05/25/23 Isosorbide Mononitrate [Isosorbide 120 mg PO DAILY 05/17/22 05/25/23 Mononitrate ER] Metoprolol Tartrate [Lopressor] 25 mg PO BID 05/17/22 05/25/23 Rosuvastatin Calcium [Crestor] 20 mg PO DAILY 05/17/22 05/25/23 Aspirin [Aspirin EC] 81 mg PO DAILY 05/25/23 05/25/23 Cyclobenzaprine [Flexeril] 10 mg PO TID PRN 05/25/23 05/25/23 Doxycycline Monohydrate [Monodox] 50 mg PO DAILY 05/25/23 05/25/23 Dulaglutide [Trulicity] 3 mg SUBQ Q7D 05/25/23 05/25/23 Furosemide [Lasix] 20 mg PO DAILY 05/25/23 05/25/23 Insulin Lispro [Insulin Lispro 30 unit SUBQ TIDWM 05/25/23 05/25/23 Kwikpen U-100] Ramelteon [Rozerem] 8 mg PO HS 05/25/23 05/25/23 Sertraline HCl [Zoloft] 50 mg PO DAILY 05/25/23 05/25/23 Diclofenac Sodium 1% Gel [Voltaren 1 gm TOP TID #50 gm 11/22/23 Gel] HYDROcod/ACETAM 5/325 [Spout Spring 5/325] 1 ea PO Q6H PRN #20 tablet 11/22/23 Meloxicam [Mobic] 7.5 mg PO BID 20 Days #40 tablet 11/22/23 - Allergies Allergies/Adverse Reactions: Allergies Allergy/AdvReac Type Severity Reaction Status Date / Time Penicillins Allergy Rash Verified 11/22/23 06:27 liraglutide [From Victoza] AdvReac Headache Verified 11/22/23 06:27 - Social History Does the pt smoke?: Yes Smoking Status: Current every day smoker Does the pt drink ETOH?: No Does the pt have substance abuse?: No - Immunizations Immunizations are current?: Yes PD ED PE NORMAL - Vitals Vital signs reviewed: Yes - General General: Alert and oriented X 3, Well developed/nourished, Other (appears in pain due to wrist. ) - Neck Neck: Supple, no meningeal sign, No bony TTP, Other (soft tissue tender muscles to left side of neck and trapezius area Scapular area of shoulder tender. Not tnder in AC nor shoulder joint ) Results - Vitals Vitals: Oxygen O2 Source Room air PD Medical Decision Making - ED course Complexity details: considered differential (main issue this morning is much increased wrist and hand pains due to carpal tunnel process. Has neck pain but the hand/fingers numbness is more attributable to wrist impingement. Can give splints, NSAIDs, and pain meds. ), d/w patient, other (use of translation tablet as well. ) Departure - Departure Disposition: 01 Home, Self Care Clinical Impression: Low back pain, Neck pain, Wrist pain, acute, Carpal tunnel syndrome on both sides Condition: Stable Record reviewed to determine appropriate education?: Yes Instructions: ED Carpal Tunnel Follow-Up: [facility] [Provider Group] Prescriptions: Meloxicam [Mobic] 7.5 mg PO BID 20 Days #40 tablet HYDROcod/ACETAM 5/325 [Spout Spring 5/325] 1 ea PO Q6H PRN #20 tablet PRN Reason: Pain Diclofenac Sodium 1% Gel [Voltaren Gel] 1 gm TOP TID #50 gm Print Language: North Korean Comments: This does sound like pain and inflammation from the carpal tunnel causing pain with movement of the muscles and some pressure on the nerves causing pain and numbness. Typically we can improve on this with wrist splints and anti-inflammatories, less use of the wrist and adding pain medicine if needed. Use the wrist splints most of the time for the next several days to week. As your wrist are improving, you may build to use them just at night or parts of the day during activity. Use meloxicam oral anti-inflammatory twice daily for the next few weeks. Take it with food. Also use topical diclofenac small amount on both wrists 2-3 times daily to help locally as well. Continue with Tylenol 500 to 650 mg 4 times a day. Add hydrocodone/acetaminophen every 6 hours if needed for worse pain. I sent your prescriptions to [facility] pharmacy. I believe the medications will help with your shoulder neck and back pains as well. Follow-up with orthopedics. You can continue with the appointment in [place] in December. I gave them the number for orthopedics here in [place]. You could call and see if they have something sooner but it might be December anyway. Which ever is more convenient for you. I am prescribing a short course of narcotic pain medication for you. These are potentially dangerous and addictive medications that should be used carefully. These medications may constipate you. Take an [id number]-[id number] stool softener such as docusate twice daily with plenty of water while taking these medications. If you go 24 hours without a bowel movement, take [id number] MiraLAX, per package instructions. Do not drink or drive while taking these medications. If you received narcotic or sedating medications while in the emergency department do not drive for 24 hours. Store this medication in a safe, secure place and out of reach of children. It is a violation of federal law to give or sell this medication to another person or to use in a manner other than prescribed. The ED will not refill narcotic prescriptions, including prescriptions lost or stolen. You can dispose of unwanted medications at the [facility]'s office or at several pharmacies such as [facility]. Forms: PCP List Discharge Date/Time: 11/22/23 09:22
[2023-11-22] MEDS: ACETAMINOPHEN 500 MG TABLET PO STA (08:53)
[2023-11-22] MEDS: KETOROLAC 30 MG/ML VIAL IM STA (08:53)
[2023-11-22 09:42] VITALS: BP 146/75; O2SAT 100
== END 2023-11-22 09:22 | disposition home or self-care (01) ==
LOC: ED 06:13
DX: G56.03 Carpal tunnel syndrome, bilateral upper limbs (principal); M54.50 Low back pain, unspecified; M54.2 Cervicalgia; I10 Essential (primary) hypertension; E78.00 Pure hypercholesterolemia, unspecified; E11.9 Type 2 diabetes mellitus without complications; G47.30 Sleep apnea, unspecified; Z79.84 Long term (current) use of oral hypoglycemic drugs; Z79.899 Other long term (current) drug therapy; F17.200 Nicotine dependence, unspecified, uncomplicated
CPT/HCPCS: 96372; 99283; A9270

== ENCOUNTER 2024-01-10 08:33 | Outpatient (CLI) | payer MEDICAID ==
--- NOTE | 2024-01-10 09:34 | Sleep Patient Instructions ---
Sleep Center Visit Summary - Patient Visit Information Reason for Visit: Annual follow-up - Patient Instructions Additional Instructions: You will continue with CPAP therapy with pressure set at 10-12 cmH2O. A supply prescription will be updated with your DME supplier. I have added a mask refitting for another mask. We encourage you to continue to try to lose weight. Please follow up with the sleep care office 1-2 months. - Clinic Information Contact: [facility] [address] [place] [address] [email or web address] T: [phone]
--- NOTE | 2024-01-10 09:39 | SLEEP CARE CONSULTATION ---
Information from patient questionnaire entered by Lin Alvarado. I have reviewed and concur with the information entered by Lin Alvarado. This document represents the service I personally performed and the decisions made by , Hetal Fink ARNP. History of Present Illness Service Date and Time: 01/10/2024 0833 Previous diagnosis: Moderate, Obstructive Sleep Apnea-Hypopnea Syndrome AHI: 29.0 (04/2021) Reason for follow up: annual (LAST SEEN 12/2021) Equipment type: CPAP (Airsense 11, 05/2021) Equipment obtained from: Other ([facility]) Mask style: Full face Backup mask available: No Prior sleep studies: Yes Type of Sleep Study: Polysomnography HPI additional information: LARA GALVEZ was diagnosed to have moderate, AHI 29, obstructive sleep apnea-hypopnea syndrome and returned today for CPAP therapy annual follow- up. Patient's primary language is Pashto and an learning support specialist was used for effective communication through [employer], #[id number] . Sleep Study - Results Type of Sleep Study: Polysomnography Prior sleep studies: Yes CPAP Compliance Data - Data Reviewed with Patient Average duration of nightly device use: 4 HRS 28 MINS Compliance rate %: 13 (07/11/23-01/06/24; 37/180 days used) Current pressure setting (cmH2O): 10-12 Average residual AHI: 2.4 Central apnea: 0.3 Obstructive apnea: 0.9 Hypopnea: 0.8 Average large leak: 9.7 L/min Subjective Missed days of use due to: reports: mask issues, travel Patient concerns: reports: mask discomfort, air blowing in eyes, dry mouth, nose, throat. denies: aerophagia, mask leak noise, condensation in mask/hose, nasal congestion, epistaxis Observed to snore while using device: No Current pressure setting perceived as: comfortable On therapy, patient: reports: sleeping better, awakening more refreshed, being more awake and alert during the day, more rested overall. denies: drowsiness while driving Initial Meeker Sleepiness Scale score: 13 Current Meeker Sleepiness Scale score: 15 (01/10/24) Allergies and Home Medications Known drug allergies: Yes (as listed) Drug allergies reviewed: Yes Home medication list reviewed: Yes (no changes) Allergy and home medication list: Allergies Penicillins Allergy (Verified 01/10/24 08:35) Rash liraglutide [From Victoza] Adverse Reaction (Verified 01/10/24 08:35) Headache Review of Systems Review of systems same as previous: Yes (NO CHANGE) Physical Exam Vital signs obtained and entered by: LIN Pool MA Blood Pressure: 177/83 (LEFT ARM ) Cuff size: long Heart Rate: 80 O2 Saturation: 98 Height: 5 ft 1 in Weight: 246 lb Weight change since last visit: 3 lb loss Body Mass Index: 46.5 BMI Classification: Morbidly Obese Impression and Plan 1. Obstructive Sleep Apnea-Hypopnea Syndrome, moderate, with poor treatment compliance and good apnea control. On CPAP therapy, the patient has better sleep quality and is more rested overall. She communicates through the learning support specialist, he says that she cannot use the machine because she was told through an FDA letter that her mask was recalled. She has not been able to get supplies through her DME because she needs a new prescription sent to them. I will update her prescription and have a copy faxed to her DME supplier. I fit her to a ResMed F10, full face mask in the office today. I will add a mask refitting so that she may get a new mask. Patient's apnea severity and rationale for treatment to reduce apnea, improve sleep quality and reduce cardiovascular and cerebrovascular events was reviewed. I also reviewed the benefit of consistent device use of CPAP for hypertension, diabetes, depression/anxiety. 2. Obesity, unspecified. Currently patients BMI is 46.5. Obesity increases the risk of apnea, CPAP pressure requirements and overall health risks especially cardiovascular and diabetes. Thus patient is advised to continue to try to lose weight. * Continue auto CPAP pressure at 10-12 cmH2O * Mask refitting * Update supply prescription. * Notify me if snoring with mask or feeling that the pressure is too much or too little * Attempt to lose weight * Call this office if any problems using CPAP * Return for follow up in 1-2 months, or sooner if concerns arise Mask provided: Yes Prescriptions: Device supplies Follow up with Sleep Care in: 1-2 months Visit Type: In Office Time Spent with Patient (minutes): 28 Provider Statement: I spent 100% of the Face to Face Visit with the patient with greater than 50% spent counseling the patient and coordination of care.
[2024-01-10 09:47] VITALS: BP 177/83; O2SAT 98
== END 2024-01-10 08:34 | disposition home or self-care (01) ==
LOC: SC 08:33
PROVIDERS: ATTEND Nurse Practitioner Family
DX: G47.33 Obstructive sleep apnea (adult) (pediatric) (principal); E66.01 Morbid (severe) obesity due to excess calories; Z68.42 Body mass index [BMI] 45.0-49.9, adult
CPT/HCPCS: 99212; 99213